=== PATIENT | male | born 1985 | race Caucasian/White ===

== ENCOUNTER 2017-02-25 20:41 | Emergency (ER) | payer OTHER ==
[~2017-02-25] VITALS: Ht 175.3 cm; Wt 136.0 kg
[~2017-02-25 20:41] MED LIST: AMOXICILLIN500 M1 PO; ANTIPYRINE-BENZ14 ML LEFT EAR; NAPROXEN500 MG PO; TRAMADOL HCL50 MG PO; ZOFRAN ODT4 MG PO
[2017-02-25] MEDS ORDERED: NAPROSYN500 MG PO (22:01)
[2017-02-25 22:15] VITALS: BP 132/80
== END 2017-02-25 22:30 | disposition home or self-care (01) ==
LOC: EME 20:41
DX: S10.0XXA Contusion of throat, initial encounter (principal); W21.05XA Struck by basketball, initial encounter; Y93.67 Activity, basketball
CPT/HCPCS: 99281; 99283

== ENCOUNTER 2017-05-12 03:25 | Emergency (ER) | payer OTHER ==
[~2017-05-12] VITALS: Ht 172.7 cm; Wt 133.9 kg
[~2017-05-12 03:25] MED LIST changes: +NAPROSYN500 MG PO
[2017-05-12 04:09] LABS: HEMATOCRIT 46.3 % (38.0-50.0); MCH 28.8 PG (29.0-34.0); MCHC 34.6 G/DL (30.0-36.0); MCV 83.4 FL (86-99); MEAN PLAT.VOLUME 9.6 uM^3 (9.0-12.4); PLATELET COUNT 288 K/uL (156-360); RBC DIS.WIDTH-CV 12.5 % (11.8-14.6); RED BLOOD COUNT 5.55 M/uL (4.00-5.50); WHITE BLOOD COUNT 11.8 K/uL (4.1-10.2)
[2017-05-12 04:19] LABS: CHLORIDE 106 mEq/L (99-109); POTASSIUM 4.2 mEq/L (3.7-5.4); SODIUM 139 mEq/L (136-147)
[2017-05-12 04:20] LABS: GLUCOSE 103 mg/dL (70-99)
[2017-05-12 04:22] LABS: ANION GAP 11 MEQ/L (2-14)
[2017-05-12 04:24] LABS: GFR ESTIMATE (CALCULATED) > 59 mL/min/
[2017-05-12 04:25] LABS: UREA NITROGEN (BUN) 17 mg/dL (9-23)
[2017-05-12 05:23] LABS: PROTHROMBIN TIME 9.9 (9.2-11.2); PTT 31.3 (25-32)
[2017-05-12 05:30] LABS: TOTAL BILIRUBIN 0.9 mg/dL (0.0-1.0)
[2017-05-12 05:31] LABS: ALKALINE PHOSPHATASE 76 IU/L (3-129)
[2017-05-12 05:33] LABS: DIRECT BILIRUBIN 0.2 mg/dL (0.0-0.3)
[2017-05-12 05:34] LABS: LIPASE 19 U/L (1.0-51.0)
[2017-05-12] MEDS ORDERED: ZOFRAN4 MG PO (06:12)
[2017-05-12 06:53] VITALS: BP 147/98
== END 2017-05-12 06:54 | disposition home or self-care (01) ==
LOC: EME 03:25
PROVIDERS: Emergency Medicine
DX: K92.2 Gastrointestinal hemorrhage, unspecified (principal); K52.9 Noninfective gastroenteritis and colitis, unspecified
CPT/HCPCS: 74177; 80048; 80076; 83690; 85027; 85610; 85730; 86900; 86901; 99281; 99284; J1885; J2405; J7030

== ENCOUNTER 2017-07-06 10:26 | Emergency (ER) | payer OTHER ==
[~2017-07-06] VITALS: Ht 172.7 cm; Wt 133.0 kg
[~2017-07-06 10:26] MED LIST changes: +ZOFRAN4 MG PO
[2017-07-06] MEDS ORDERED: NAPROSYN500 MG PO (12:00)
[2017-07-06] MEDS ORDERED: ULTRAM50 MG PO (12:00)
[2017-07-06 12:35] VITALS: BP 133/94
== END 2017-07-06 12:38 | disposition home or self-care (01) ==
LOC: EME 10:26
DX: S63.502A Unspecified sprain of left wrist, initial encounter (principal); S60.212A Contusion of left wrist, initial encounter; W21.05XA Struck by basketball, initial encounter; Y93.67 Activity, basketball
CPT/HCPCS: 73110

== ENCOUNTER 2017-08-11 14:00 | Emergency (ER) | payer OTHER ==
[~2017-08-11] VITALS: Ht 172.7 cm; Wt 138.8 kg
[~2017-08-11 14:00] MED LIST changes: +ULTRAM50 MG PO
[2017-08-11 16:57] VITALS: BP 140/82
== END 2017-08-11 17:03 | disposition home or self-care (01) ==
LOC: EME 14:00
DX: S63.502A Unspecified sprain of left wrist, initial encounter (principal); X50.9XXA Other and unspecified overexertion or strenuous movements or postures, initial encounter; Y93.67 Activity, basketball
CPT/HCPCS: 73110; 73130; 99281; 99283

== ENCOUNTER 2018-06-20 10:38 | Emergency (ER) | payer OTHER ==
[~2018-06-20] VITALS: Ht 172.7 cm; Wt 151.9 kg
[2018-06-20 10:43] VITALS: BP 158/80
== END 2018-06-20 11:48 | disposition left against medical advice (07) ==
LOC: EME 10:38
DX: N50.89 Other specified disorders of the male genital organs (principal); Z53.21 Procedure and treatment not carried out due to patient leaving prior to being seen by health care provider
CPT/HCPCS: 81003

== ENCOUNTER 2018-06-21 22:44 | Emergency (ER) | payer OTHER ==
[~2018-06-21] VITALS: Ht 172.7 cm; Wt 157.3 kg
[2018-06-21 23:43] LABS: BASOPHIL (%) 1.2 % (0-1); BASOPHIL COUNT 0.1 K/uL (0-0.1); EOSINOPHIL (%) 5.4 % (0-5); EOSINOPHIL COUNT 0.6 K/uL (0-0.3); HEMATOCRIT 43.7 % (38.0-50.0); IMMATURE GRANULOCYTE (%) 0.4 % (0.0-0.7); LYMPHOCYTE (%) 29.1 % (15-42); LYMPHOCYTE COUNT 3.1 K/uL (1.0-2.8); MCH 28.5 PG (29.0-34.0); MCHC 34.3 G/DL (30.0-36.0); MCV 82.9 FL (86-99); MONOCYTE COUNT 0.6 K/uL (0-0.8); NEUTROPHIL (%) 57.9 % (45-76); NEUTROPHIL COUNT 6.2 K/uL (1.8-6.4); PLATELET COUNT 230 K/uL (156-360); RBC DIS.WIDTH-CV 12.9 % (11.8-14.6); RBC DIS.WIDTH-SD 38.8 % (39-53); RED BLOOD COUNT 5.27 M/uL (4.00-5.50); WHITE BLOOD COUNT 10.6 K/uL (4.1-10.2)
[2018-06-21 23:57] LABS: ALBUMIN 4.3 g/dL (3.2-4.8); CHLORIDE 105 mEq/L (99-109); POTASSIUM 3.8 mEq/L (3.7-5.4); SODIUM 141 mEq/L (136-147)
[2018-06-21 23:59] LABS: GLUCOSE 108 mg/dL (70-99); TOTAL PROTEIN 7.2 g/dL (6.4-8.3)
[2018-06-22 00:01] LABS: TOTAL BILIRUBIN 0.8 mg/dL (0.0-1.0)
[2018-06-22 00:02] LABS: ALKALINE PHOSPHATASE 76 IU/L (3-129)
[2018-06-22 00:03] LABS: CREATININE 0.9 mg/dL (0.6-1.3); GFR ESTIMATE (CALCULATED) > 59 mL/min/ (58.99-99999)
[2018-06-22 00:04] LABS: AST (GOT) 54 IU/L (2-34); DIRECT BILIRUBIN 0.3 mg/dL (0.0-0.3); UREA NITROGEN (BUN) 13 mg/dL (9-23)
[2018-06-22 00:06] LABS: ALT (GPT) 121 IU/L (3-49); LIPASE 15 U/L (1.0-51.0)
[2018-06-22 00:16] LABS: APPEARANCE CLEAR ((CLEAR)); BILIRUBIN NEGATIVE; BLOOD MODERATE; COLOR YELLOW ((YELLOW)); GLUCOSE (STRIP) NEGATIVE; KETONES NEGATIVE; LEUKOCYTES NEGATIVE; NITRITE NEGATIVE; PROTEIN (STRIP) 30; SPECIFIC GRAVITY 1.018 (1.000-1.030); UROBILINOGEN 0.2 MG/DL (0.2-1.0)
[2018-06-22 00:23] LABS: BACTERIA NONE SEEN /HPF; EPITHELIAL CELLS NONE SEEN /HPF; MUCUS 1+ /LPF; RED BLOOD CELLS 30-40 /HPF (0-5)
[2018-06-22 00:58] LABS: MONOSPOT (MONONUCLEOSIS SEROL) NEGATIVE
[2018-06-22 01:21] LABS: SOURCE URINE
[2018-06-22] MEDS ORDERED: MOTRIN800 MG PO (02:03)
[2018-06-22 02:16] VITALS: BP 126/75
[2018-06-22] MEDS ORDERED: LIDOCAINE20 MG/1 M5 PO (02:37)
[2018-06-22 13:00] LABS: CHLAMYDIA TRACHOMATIS NEGATIVE; NEISSERIA GONORRHOEAE NEGATIVE
== END 2018-06-22 02:48 | disposition home or self-care (01) ==
LOC: EME 22:44
PROVIDERS: Physician Assistant
DX: R10.11 Right upper quadrant pain (principal); J02.9 Acute pharyngitis, unspecified; R31.9 Hematuria, unspecified; R30.0 Dysuria; E66.01 Morbid (severe) obesity due to excess calories; Z68.43 Body mass index [BMI] 50.0-59.9, adult
CPT/HCPCS: 74176; 76705; 80048; 80076; 81003; 83690; 85025; 86308; 86664; 86665; 87086; 87491; 87591; 87651 90; 99281; 99285; J1885